=== PATIENT | female | born 1995 | race Caucasian/White ===

== ENCOUNTER → 2017-11-20 | Outpatient (CLI) | payer OTHER ==
[2017-11-20 15:11] LABS: BASO # 0.1 x10^3/uL (0.0-0.2); BASO % 1 % (0-3); EOS # 0.2 x10^3/uL (0.0-0.7); EOS % 3 % (0-3); HEMATOCRIT 42.1 % (36.0-47.0); HEMOGLOBIN 14.9 g/dL (12.0-15.5); LYMPH # 2.7 x10^3/uL (1.0-4.8); LYMPH % 34 % (24-48); MEAN CORPUSCULAR HEMOGLOBIN 31 pg (25-35); MEAN CORPUSCULAR HGB CONC 35 g/dL (31-37); MEAN CORPUSCULAR VOLUME 89 fL (79-100); MONO # 0.4 x10^3/uL (0.0-1.1); MONO % 5 % (0-9); NEUT # 4.5 x10^3uL (1.8-7.7); NEUT % 57 % (31-73); PLATELET COUNT 276 x10^3/uL (140-400); RED BLOOD COUNT 4.74 x10^6/uL (3.50-5.40); RED CELL DISTRIBUTION WIDTH 12.4 % (11.5-14.5); WHITE BLOOD COUNT 7.9 x10^3/uL (4.0-11.0)
[2017-11-20 15:16] LABS: ALBUMIN 3.9 g/dL (3.4-5.0); ALBUMIN/GLOBULIN RATIO 1.1 (1.0-1.7); CALCIUM 8.9 mg/dL (8.5-10.1); CREATININE 0.7 mg/dL (0.6-1.0); GFR 105.6; POTASSIUM 3.8 mmol/L (3.5-5.1); TOTAL BILIRUBIN 0.7 mg/dL (0.2-1.0); TOTAL PROTEIN 7.5 g/dL (6.4-8.2); URIC ACID 4.1 mg/dL (2.6-6.0)
[2017-11-20 16:19] LABS: SEDIMENTATION RATE 5 (0-25)
[2017-11-21 01:12] LABS: RHEUMATOID FACTOR <10.0 IU/mL (0.0-13.9)
[2017-11-21 13:56] LABS: FREE T4 1.18 ng/dL (0.76-1.46); THYROID STIM HORMONE (TSH) 0.661 uIU/mL (0.358-3.740)
[2017-11-21 22:18] LABS: CYCLIC CITRULLIN PEP AB 5 units (0-19)
[2017-11-24 20:07] LABS: ANA INTERP Positive (.)
== END | disposition home or self-care (01) ==
LOC: PMG 14:16
PROVIDERS: ATTEND Physician Assistant
DX: M25.50 Pain in unspecified joint (principal)
CPT/HCPCS: 36415; 80053; 84439; 84443; 84550; 85025; 85651; 86038; 86200; 86431

== ENCOUNTER → 2019-03-10 | Outpatient (CLI) | payer OTHER | END | disposition home or self-care (01) | LOC: PMG 10:15 | PROVIDERS: ATTEND Physician Assistant | DX: R35.0 Frequency of micturition (principal); R31.9 Hematuria, unspecified | CPT/HCPCS: 87086 ==